=== PATIENT | male | born 1980 | race Hispanic/Latino ===

== ENCOUNTER 2017-10-22 19:38 | Emergency (ER) | payer BC, OTHER ==
--- NOTE | 2017-10-22 20:52 | RAD REPORT ---
EXAM DESCRIPTION: CT - Head Brain Wo Cont - 10/22/2017 8:46 pm CLINICAL HISTORY: Left-sided numbness, left arm weakness COMPARISON: None. TECHNIQUE: Axial 5 mm thick images of the head were obtained without IV contrast. All CT scans are performed using dose optimization technique as appropriate and may include automated exposure control or mA/KV adjustment according to patient size. FINDINGS: No intracranial hemorrhage, mass, edema or shift of mid-line structures. No acute infarcti on changes seen. No abnormal extra-axial fluid collections. Ventricles are normal. Relative density along the tentorium is felt to be normal for age and not the tentorium subdural hematoma. Falx is nor mal. Mastoid air cells and visualized portions of the paranasal sinuses are clear. No acute bony findings. IMPRESSION: Negative non-contrast CT head examination. Concerns for acute CVA could be addressed wi MR imaging.
[2017-10-22 21:14] LABS: Bicarbonate 26 mEq/L (21-31); Glucose Level 106 mg/dL (65-120); Potassium 3.3 mEq/L (3.6-5.0); Sodium Level 139 mEq/L (135-145)
[2017-10-22 21:15] LABS: Absolute Lymphocytes (CBC) 2.3 K/uL (0.7-4.9); Absolute Monocytes 0.7 K/uL (0.1-1.3); Absolute Neutrophil 5.5 K/uL (1.8-8.0); BUN Blood Urea Nitrogen 16 mg/dL (6-20); Basophils % 0.7 % (0-1.3); Hematocrit 42.6 % (39.6-49.0); Lymphocytes % 26.9 % (15.3-44.8); MCH 31.3 pg (27.0-35.0); MCV 89.9 fL (80-100); MPV 8.5 fL (7.6-11.3); Monocytes % 8.6 % (3.3-12.3); RBC Red Blood Cell Count 4.74 M/uL (4.33-5.43)
--- NOTE | 2017-10-22 22:20 | RAD REPORT ---
EXAM DESCRIPTION: RAD - Chest Single View - 10/22/2017 10:14 pm CLINICAL HISTORY: Chest pain COMPARISON: None. TECHNIQUE: AP portable chest image was obtained 4 hours . FINDINGS: Lungs are clear. Heart and vasculature are normal. No measurable pleural effusion and no p neumothorax. No gross bony abnormality seen. No acute aortic findings suspected. IMPRESSION: No acute cardiopulmonary process.
--- NOTE | 2017-10-22 23:02 | ER ---
Nurse's Notes [facility] Name: Arnel Brady Age: 37 yrs Sex: Male : 1980 Arrival Date: 10/22/2017 Time: 19:42 Bed 20 Private MD: Diagnosis: Paresthesia of skin;Chest pain, unspecified Presentation: 10/22 20:01 Presenting complaint: Patient states: that at 1700 today he started to have shortness fc of breath, rapid breathing, numbness to left cheek and left arm. Continues to have slight numbness to left arm and left cheek. No weakness noted to exts. Gait normal. Transition of care: patient was not received from another setting of care. Onset of symptoms was October 22, 2017 at 17:00. Initial Sepsis Screen: Does the patient meet any 2 criteria? No. Patient's initial sepsis screen is negative. Does the patient have a suspected source of infection? No. Patient's initial sepsis screen is negative. Care prior to arrival: Medication(s) given: ASA, 325 mg, x 1. 20:01 Method Of Arrival: Ambulatory fc 20:01 Acuity: SIDDHARTH 3 fc Triage Assessment: 20:05 General: Appears comfortable, Behavior is calm, cooperative, appropriate for age. Pain: fc Denies pain. EENT: No deficits noted. Neuro: Level of Consciousness is awake, alert, obeys commands, Oriented to person, place, time, situation, Reports numbness in left cheek and left arm Denies blurred vision dizziness, headache. Cardiovascular: No deficits noted. Respiratory: Reports shortness of breath prior to arrival Onset: The symptoms/episode began/occurred suddenly, the patient has mild shortness of breath. GI: No deficits noted. : No deficits noted. Derm: Skin is pink, warm \T\ dry. Musculoskeletal: Circulation, motion, and sensation intact. Capillary refill < 3 seconds, Range of motion: intact in all extremities, Reports numbness in left arm and left cheek. Historical: - Allergies: 20:05 No Known Allergies; fc - Home Meds: 20:05 None [Active]; fc - PMHx: 20:05 None; fc - PSHx: 20:05 None; fc - Immunization history:: Last tetanus immunization: unknown. - Social history:: Smoking status: Patient/guardian denies using tobacco. Screenin:05 Abuse screen: Denies threats or abuse. Nutritional screening: No deficits noted. jd3 Tuberculosis screening: No symptoms or risk factors identified. Fall Risk IV access (20 points). Gait- Normal/Bed Rest/Wheelchair (0 pts) Mental Status- Oriented to own ability (0 pts). Total Lo Fall Scale indicates No Risk (0-24 pts). Assessment: 20:13 General: Appears in no apparent distress. uncomfortable, Behavior is calm, cooperative, jd3 appropriate for age. Pain: Complains of pain in chest Pain radiates to face and left arm Quality of pain is described as aching, pressure, Pain began 4 hours ago. Neuro: Level of Consciousness is awake, alert, obeys commands, Oriented to person, place, time, situation, Appropriate for age Gait is steady, Speech is normal, Facial symmetry appears normal, Intact. Cardiovascular: Heart tones S1 S2 present Capillary refill < 3 seconds Patient's skin is warm and dry. Rhythm is regular. Respiratory: Airway is patent Respiratory effort is even, unlabored, Respiratory pattern is regular, symmetrical, Breath sounds are clear bilaterally. GI: Abdomen is round Patient currently denies diarrhea, nausea, vomiting. : No signs and/or symptoms were reported regarding the genitourinary system. EENT: No signs and/or symptoms were reported regarding the EENT system. Derm: Skin is intact, Skin is dry, Skin is normal, Skin temperature is warm. Musculoskeletal: Circulation, motion, and sensation intact. Range of motion: intact in all extremities. 21:11 Reassessment: Patient appears in no apparent distress at this time. Patient and/or jd3 family updated on plan of care and expected duration. Pain level reassessed. Patient is alert, oriented x 3, equal unlabored respirations, skin warm/dry/pink. 22:12 Reassessment: Patient appears in no apparent distress at this time. Patient and/or jd3 family updated on plan of care and expected duration. Pain level reassessed. Patient is alert, oriented x 3, equal unlabored respirations, skin warm/dry/pink. 23:17 Reassessment: Patient appears in no apparent distress at this time. Patient is alert, aa1 oriented x 3, equal unlabored respirations, skin warm/dry/pink. Discussed d/c \T\ f/u instructions with pt; denies questions or concerns at this time Patient states feeling better. Vital Signs: 20:07 BP 107 / 72; Pulse 84; Resp 16; Temp 98.2(TE); Pulse Ox 97% on R/A; Weight 68.04 kg fc (R); Height 4 ft. 11 in. (149.86 cm) (R); Pain 0/10; 21:10 BP 114 / 83; Pulse 69; Resp 16 S; Pulse Ox 96% on R/A; Pain 0/10; jd3 22:12 BP 126 / 89; Pulse 71; Resp 14 S; Pulse Ox 97% on R/A; jd3 23:17 BP 113 / 74 LA; Pulse 74; Resp 18; Pulse Ox 98% on R/A; Pain 0/10; aa1 23:17 BP 105 / 68 RA; aa1 20:07 Body Mass Index 30.30 (68.04 kg, 149.86 cm) fc NIH Stroke Scale Scores: 22:57 NIHSS Score: 0 gs ED Course: 19:42 Patient arrived in ED. ds1 20:04 Triage completed. fc 20:05 Arm band placed on Patient placed in an exam room, on a stretcher. fc 20:09 Raman Rm MD is Attending Physician. gs 20:09 Mahnaz Solano, RN is Primary Nurse. aj 20:20 Primary Nurse role handed off by Mahnaz Solano, RN jd3 20:20 Bassam Chaidez, [place] is Primary Nurse. jd3 20:37 X-ray completed. Portable x-ray completed in exam room. Patient tolerated procedure kc2 well. 20:38 XRAY Chest (1 view) In Process Unspecified. EDMS 20:47 CT Head Brain wo Cont In Process Unspecified. EDMS 20:53 Inserted saline lock: 20 gauge in right hand, using aseptic technique. Blood collected. jd3 placed by Nasim STOREY. 21:06 Patient has correct armband on for positive identification. Placed in gown. Bed in low jd3 position. Call light in reach. Side rails up X 1. 23:08 Haja Irizarry MD is Referral Physician. gs 23:08 Araseli Puente DO is Referral Physician. gs 23:18 No provider procedures requiring assistance completed. IV discontinued, intact, aa1 bleeding controlled, No redness/swelling at site. Pressure dressing applied. Administered Medications: No medications were administered Outcome: 23:01 Discharge ordered by . 23:18 Discharged to home ambulatory. aa1 23:18 Condition: good 23:18 Discharge instructions given to patient, Instructed on discharge instructions, follow up and referral plans. Demonstrated understanding of instructions, follow-up care. 23:18 Patient left the ED. aa1 NIH Stroke Scale - NIH Stroke Score Date: 10/22/2017 Time: 22:57 Total Score = 0 1a. Level of Consciousness (LOC) - 0(Alert) 1b. Level of Consciousness (LOC) (Year \T\ Age) - 0(Both) 1c. LOC Commands (Open \T\ Closes Eyes/Foam Rubber Molder) - 0(Both) 2. Best Gaze (Lateral Gaze Paresis) - 0(Normal) 3. Visual Field Loss - 0(No visual loss) 4. Facial Palsy - 0(Normal) 5a. Left Arm: Motor (10-second hold) - 0(No drift) 5b. Right Arm: Motor (10-second hold) - 0(No drift) 6a. Left Leg: Motor (5-second hold - always test supine) - 0(No drift) 6b. Right Leg: Motor (5-second hold - always test supine) - 0(No drift) 7. Limb Ataxia (finger/nose \T\ heel/rausch - test with eyes open) - 0(Absent) 8. Sensory Loss (pinprick arms/legs/face) - 0(Normal) 9. Best Language: Aphasia (description/naming/reading) - 0(No aphasia) 10. Dysarthria (speech clarity - read or repeat words) - 0(Normal) 11. Extinction and Inattention (visual/tactile/auditory/spatial/personal) - 0(No abnormality) Initials: Signatures: Dispatcher [employer] EDMS Chely Hess RN RN aa1 Mahnaz Solano RN RN aj Chretien, Felicia, RN RN fc Sanford, Demi ds1 Eloina Oneill Gregory, MD MD gs Davies, Jonathon, RN RN jd3 Corrections: (The following items were deleted from the chart) 20:07 20:05 Musculoskeletal: No signs and/or symptoms reported regarding the musculoskeletal system.
--- NOTE | 2017-10-22 23:03 | EDPHYS ---
Physician Documentation [facility] Name: Arnel Brady Age: 37 yrs Sex: Male : 1980 Arrival Date: 10/22/2017 Time: 19:42 Bed 20 Private MD: ED Physician Raman Rm HPI: 10/22 22:57 This 37 yrs old Male presents to ER via Ambulatory with complaints of L-Side gs Numbness. 22:57 The patient presents to the emergency department with paresthesias of the left upper gs extremity, left side of the face. Onset: The symptoms/episode began/occurred today, at 16:00. Context: occurred at work. Associated signs and symptoms: Pertinent negatives: altered mental status, weakness. Severity of symptoms: At their worst the symptoms were moderate in the emergency department the symptoms have improved markedly. The patient has not experienced similar symptoms in the past. The patient has not recently seen a physician. Historical: - Allergies: 20:05 No Known Allergies; fc - Home Meds: 20:05 None [Active]; fc - PMHx: 20:05 None; fc - PSHx: 20:05 None; fc - Immunization history:: Last tetanus immunization: unknown. - Social history:: Smoking status: Patient/guardian denies using tobacco. ROS: 22:57 Cardiovascular: Positive for chest pain, of the left supraclavicular area, left gs clavicle and anterior aspect of left upper chest, brief resolved. 22:57 All other systems are negative. Exam: 22:57 Head/Face: Normocephalic, atraumatic. Eyes: Pupils equal round and reactive to light, gs extra-ocular motions intact. Lids and lashes normal. Conjunctiva and sclera are non-icteric and not injected. Cornea within normal limits. Periorbital areas with no swelling, redness, or edema. ENT: Nares patent. No nasal discharge, no septal abnormalities noted. Tympanic membranes are normal and external auditory canals are clear. Oropharynx with no redness, swelling, or masses, exudates, or evidence of obstruction, uvula midline. Mucous membranes moist. Neck: Trachea midline, no thyromegaly or masses palpated, and no cervical lymphadenopathy. Supple, full range of motion without nuchal rigidity, or vertebral point tenderness. No Meningismus. Chest/axilla: Normal chest wall appearance and motion. Nontender with no deformity. No lesions are appreciated. Cardiovascular: Regular rate and rhythm with a normal S1 and S2. No gallops, murmurs, or rubs. Normal PMI, no JVD. No pulse deficits. Respiratory: Lungs have equal breath sounds bilaterally, clear to auscultation and percussion. No rales, rhonchi or wheezes noted. No increased work of breathing, no retractions or nasal flaring. Abdomen/GI: Soft, non-tender, with normal bowel sounds. No distension or tympany. No guarding or rebound. No evidence of tenderness throughout. Back: No spinal tenderness. No costovertebral tenderness. Full range of motion. Skin: Warm, dry with normal turgor. Normal color with no rashes, no lesions, and no evidence of cellulitis. MS/ Extremity: Pulses equal, no cyanosis. Neurovascular intact. Full, normal range of motion. 22:57 Constitutional: The patient appears alert, awake. 22:57 Neuro: Orientation: is normal, Mentation: is normal, Memory: is normal, Cranial nerves: grossly normal, CN II- XII are normal as tested, Cerebellar function: normal finger to nose testing, Motor: is normal, strength is normal, strength is 5/5 in all extremities, Sensation: pin prick testing is normal. 22:57 ECG was reviewed by the Attending Physician. Vital Signs: 20:07 BP 107 / 72; Pulse 84; Resp 16; Temp 98.2(TE); Pulse Ox 97% on R/A; Weight 68.04 kg (R); Height 4 ft. 11 in. (149.86 cm) (R); Pain 0/10; 21:10 BP 114 / 83; Pulse 69; Resp 16 S; Pulse Ox 96% on R/A; Pain 0/10; jd3 22:12 BP 126 / 89; Pulse 71; Resp 14 S; Pulse Ox 97% on R/A; jd3 23:17 BP 113 / 74 LA; Pulse 74; Resp 18; Pulse Ox 98% on R/A; Pain 0/10; aa1 23:17 BP 105 / 68 RA; aa1 20:07 Body Mass Index 30.30 (68.04 kg, 149.86 cm) NIH Stroke Scale Scores: 22:57 NIHSS Score: 0 gs MDM: 20:16 Patient medically screened. gs 22:57 Data reviewed: vital signs, nurses notes. Response to treatment: the patient's symptoms gs have markedly improved after treatment. ED course: ddx cva, tia, paresthesia, cad. 10/22 20:18 Order name: Basic Metabolic Panel; Complete Time: :27 10/22 20:18 Order name: CBC with Diff; Complete Time: : 10/22 20:18 Order name: Magnesium; Complete Time: : 10/22 20:18 Order name: Troponin (emerg Dept Use Only); Complete Time: : 10/22 20:18 Order name: XRAY Chest (1 view); Complete Time: :40 10/22 20:18 Order name: CT Head Brain wo Cont; Complete Time: : 10/22 20:18 Order name: EKG; Complete Time: 20:18 10/22 20:18 Order name: Cardiac monitoring; Complete Time: 20: 10/22 20:18 Order name: EKG - Nurse/Tech; Complete Time: :58 10/22 20:18 Order name: IV Saline Lock; Complete Time: 20:58 10/22 20:18 Order name: Labs collected and sent; Complete Time: 20:58 10/22 20:18 Order name: O2 Per Protocol; Complete Time: 20: 10/22 20:18 Order name: O2 Sat Monitoring; Complete Time: 20:21 10/22 20:18 Order name: Urine Dipstick-Ancillary (obtain specimen); Complete Time: 20:21 gs EC:57 Rate is 77 beats/min. Rhythm is regular. NV interval is normal. QRS interval is normal. gs QT interval is normal. T waves are Flattened in leads III, aVF. Clinical impression: Abnormal EKG without significant change. Interpreted by me. Administered Medications: No medications were administered Disposition: 10/22/17 23:01 Discharged to Home. Impression: Paresthesia of skin, Chest pain, unspecified. - Condition is Stable. - Discharge Instructions: Nonspecific Chest Pain, Paresthesia, [id number]. - Medication Reconciliation Form, Thank You Letter, Antibiotic Education, Prescription Opioid Use form. - Follow up: Private Physician; When: 2 - 3 days; Reason: Re-evaluation by your physician. Follow up: Haja Irizarry MD; When: 2 - 3 days; Reason: Re-evaluation by your physician. Follow up: Araseli Peunte DO; When: 2 - 3 days; Reason: Re-evaluation by your physician. NIH Stroke Scale - NIH Stroke Score Date: 10/22/2017 Time: 22:57 Total Score = 0 1a. Level of Consciousness (LOC) - 0(Alert) 1b. Level of Consciousness (LOC) (Year \T\ Age) - 0(Both) 1c. LOC Commands (Open \T\ Closes Eyes/Inspector Subassembly) - 0(Both) 2. Best Gaze (Lateral Gaze Paresis) - 0(Normal) 3. Visual Field Loss - 0(No visual loss) 4. Facial Palsy - 0(Normal) 5a. Left Arm: Motor (10-second hold) - 0(No drift) 5b. Right Arm: Motor (10-second hold) - 0(No drift) 6a. Left Leg: Motor (5-second hold - always test supine) - 0(No drift) 6b. Right Leg: Motor (5-second hold - always test supine) - 0(No drift) 7. Limb Ataxia (finger/nose \T\ heel/rausch - test with eyes open) - 0(Absent) 8. Sensory Loss (pinprick arms/legs/face) - 0(Normal) 9. Best Language: Aphasia (description/naming/reading) - 0(No aphasia) 10. Dysarthria (speech clarity - read or repeat words) - 0(Normal) 11. Extinction and Inattention (visual/tactile/auditory/spatial/personal) - 0(No abnormality) Initials: gs Signatures: Dispatcher [employer] EDMS Chely Hess RN RN aa1 Monika Eastman RN RN fc Raman Rm MD MD gs Corrections: (The following items were deleted from the chart) 23:08 23:01 10/22/2017 23:01 Discharged to Home. Impression: Paresthesia of skin; gs Chest pain, unspecified. Condition is Stable. Forms are Medication Reconciliation Form, Thank You Letter, Antibiotic Education, Prescription Opioid Use. Follow up: Private Physician; When: 2 - 3 days; Reason: Re-evaluation by your physician. gs 23:18 23:08 10/22/2017 23:01 Discharged to Home. Impression: Paresthesia of skin; aa1 Chest pain, unspecified. Condition is Stable. Discharge Instructions: Nonspecific Chest Pain, Paresthesia, [id number]. Forms are Medication Reconciliation Form, Thank You Letter, Antibiotic Education, Prescription Opioid Use. Follow up: Private Physician; When: 2 - 3 days; Reason: Re-evaluation by your physician. Follow up: Haja Irizarry; When: 2 - 3 days; Reason: Re-evaluation by your physician. Follow up: Araseli Puente; When: 2 - 3 days; Reason: Re-evaluation by your physician. gs
--- NOTE | 2017-10-23 12:18 | EKG ---
Test Date: 2017-10-22 Test Time: 20:50:55 [place] Machine Operator: PAULINE MEASUREMENT RESULTS: Intervals: Rate: 77 FL: 152 QRSD: 94 QT: 370 QTc: 418 [place]: P: 47 FL: 152 QRS: 32 T: 8 INTERPRETIVE STATEMENTS: Normal sinus rhythm with sinus arrhythmia Normal ECG No previous ECG available for comparison Electronically Signed On 10-23-17 12:17:46 CDT by Christiano De Dios
== END 2017-10-22 23:18 | disposition home or self-care (01) ==
LOC: ER 19:38
DX: R07.9 Chest pain, unspecified (principal)
CPT/HCPCS: 36415; 70450; 71045; 80048; 83735; 84484; 85025; 93005; 99284

== ENCOUNTER 2023-02-18 10:08 | Emergency (ER) | payer BC, SELFPAY ==
[2023-02-18] MEDS ORDERED: LIDOCAINE 2% MPF 5 ML VIAL ONE (10:47)
[2023-02-18] MEDS ORDERED: IBUPROFEN 400 MG TAB ONE (10:47)
[2023-02-18] MEDS ORDERED: BUPIVACAINE 0.5% PF 10 ML VIAL ONE (10:47)
[2023-02-18] MEDS ORDERED: TDAP (DIPHTH,PERTUSS(ACELL),TET VAC) 0.5 ML VIAL IMVAC ONE (10:48)
--- NOTE | 2023-02-18 11:13 | RAD REPORT ---
EXAM DESCRIPTION: RAD.Finger-Thumb Left02/18/2023 10:41 am CLINICAL HISTORY: laceration COMPARISON: No comparisons TECHNIQUE: Two views of the left second digit FINDINGS: Soft tissue swelling and irregularity along the second digit distal phalanx. Small chip fr acture related to the antro lateral cortex of the second digit distal phalanx. Joint alignment is dave ntained. No other suspicious osseous lesions. IMPRESSION: Small chip fracture along the antro lateral cortex of the second digit distal phalanx. A djacent soft tissue swelling and irregularity, suggesting a laceration.
[2023-02-18] MEDS ORDERED: CEFAZOLIN SODIUM 1 GM/VIAL ONE (12:00)
[2023-02-18] MEDS ORDERED: WATER FOR INJ,STERILE 10 ML ONE (12:01)
--- NOTE | 2023-02-18 12:44 | EDPHYS ---
Physician Documentation [facility] Name: Arnel Brady Age: 42 yrs Sex: Male : 1980 Arrival Date: 02/18/2023 Time: 10:08 Bed 13 Private MD: ED Physician Charito Rankin HPI: 02/18 10:30 This 42 yrs old Male presents to ER via Ambulatory with complaints of Finger cp laceration. 10:30 The patient or guardian reports injury, a laceration. The complaints affect the distal cp phalanx left index finger. Context: resulted from use of machine zipper trimmer. Onset: The symptoms/episode began/occurred just prior to arrival. Associated signs and symptoms: The patient has no apparent associated signs or symptoms. Historical: - Allergies: 10:20 No Known Allergies; hb - Home Meds: 10:20 None [Active]; hb - PMHx: 10:20 None; hb - PSHx: 10:20 None; hb - Immunization history:: Adult Immunizations up to date. - Social history:: Smoking status: Patient denies any tobacco usage or history of. ROS: 10:35 Eyes: Negative for injury, pain, redness, and discharge. cp 10:35 Constitutional: Negative for body aches, chills, fever. 10:35 Cardiovascular: Negative for chest pain, palpitations. 10:35 Respiratory: Negative for cough, shortness of breath, wheezing. 10:35 Abdomen/GI: Negative for abdominal pain, vomiting, diarrhea, constipation. 10:35 MS/extremity: Positive for laceration, of the distal phalanx left index finger, Negative for decreased range of motion. 10:35 Neuro: Negative for altered mental status, headache, weakness. 10:35 All other systems are negative. Exam: 10:40 Head/Face: Normocephalic, atraumatic. cp 10:40 Constitutional: The patient appears in no acute distress, alert, awake, non-toxic, well developed, well nourished, in obvious pain, uncomfortable. 10:40 Eyes: Periorbital structures: appear normal, Conjunctiva: normal, no exudate, no injection, Sclera: no appreciated abnormality, Lids and lashes: appear normal, bilaterally. 10:40 ENT: External ear(s): are unremarkable, Nose: is normal, Mouth: Lips: moist, Oral cp mucosa: moist, Posterior pharynx: is normal, airway is patent, no erythema, no exudate. 10:40 Chest/axilla: Inspection: normal. 10:40 Cardiovascular: Rate: normal. 10:40 Respiratory: the patient does not display signs of respiratory distress, Respirations: normal, Breath sounds: are clear throughout. 10:40 Abdomen/GI: Exam negative for discomfort, distension, guarding, Inspection: abdomen appears normal. 10:40 Musculoskeletal/extremity: Extremities: grossly normal except: noted in the left index finger: laceration, pain, swelling, tenderness, There is no evidence of decreased ROM, deformity, ROM: full active range of motion, in the left index finger, Perfusion: the extremity is normally perfused throughout, the distal phalanx left index finger 2 point discrimination intact Nails: of left index finger intact. 10:40 Neuro: Orientation: to person, place \T\ time. Mentation: is normal, Motor: moves all fours, strength is normal. Vital Signs: 10:19 BP 127 / 85; Pulse 83; Resp 16; Temp 98.3; Pulse Ox 99% on R/A; Weight 63.5 kg; Height hb 4 ft. 11 in. ; Pain 10/10; 13:01 BP 127 / 86; Pulse 78; Resp 16; Pulse Ox 96% on R/A; hb 10:19 Body Mass Index 28.28 (63.50 kg, 149.86 cm) hb 10:19 Pain Scale: Adult hb Laceration: 12:45 Wound Repair of 2.5cm ( 1.0in ) subcutaneous laceration to distal phalanx left index cp finger. Linear shaped.. Distal neuro/vascular/tendon intact. Anesthesia: Digital block administered with 6 mls of Lido/Marcaine. Wound prep: Moderate cleansing by me. Skin closed with 7 5-0 Prolene using simple sutures and sterile technique. Dressed with Bacitracin, non-adherent dressing, finger splint. Patient tolerated well. MDM: 10:11 Patient medically screened. cp 11:00 Differential diagnosis: open fracture, closed fracture, simple laceration, nail injury, cp amputation. 12:42 Data reviewed: vital signs, nurses notes, radiologic studies, plain films. cp 12:42 I considered the following discharge prescriptions or medication management in the emergency department Medications were administered in the Emergency Department. See MAR. Independent interpretation of the following test(s) in the Emergency Department X-Ray: My interpretation is left index finger images show chip fracture of distal phalanx. Response to treatment: the patient's symptoms have markedly improved after treatment, and as a result, I will discharge patient. Special discussion: I discussed in detail with the patient the higher chance of wound infection based on his presenting history. 02/18 10:26 Order name: XRAY Finger-Thumb Left; Complete Time: 11:42 cp 02/18 11:42 Interpretation: Report reviewed. cp 02/18 12:41 Order name: Wound Care; Complete Time: 12:50 cp 02/18 12:41 Order name: Finger Splint; Complete Time: 12:50 cp Administered Medications: 10:44 Drug: Tetanus-Diphtheria Toxoid IM Adult 0.5 ml {[employer] A[employer]: [employer] ([employer]). ll1 Exp: 07/09/2023. Lot #: [id number]. } Route: IM; Site: right deltoid; 12:00 Follow up: Response: No adverse reaction ll1 10:45 Drug: Ibuprofen PO 800 mg Route: PO; ll1 12:00 Follow up: Response: No adverse reaction; Pain is decreased ll1 11:02 Drug: Bupivacaine Infiltration (0.5 %) 5 ml {Note: by Kera RIDDLE.} Volume: 10 ml; ll1 Route: Infiltration; 12:00 Follow up: Response: No adverse reaction ll1 11:03 Drug: Lidocaine Infiltration (2 %) 5 ml {Note: by Kera RIDDLE.} Volume: 5 ml; Route: ll1 Infiltration; 12:00 Follow up: Response: No adverse reaction ll1 12:00 Drug: CeFAZolin IM 1 grams Route: IM; Site: right vastus lateralis; ll1 13:00 Follow up: Response: No adverse reaction hb Disposition Summary: 02/18/23 12:43 Discharge Ordered Location: Home cp Problem: new cp Symptoms: have improved cp Condition: Stable cp Diagnosis - Displaced fracture of distal phalanx of left index finger, initial encounter for cp open fracture Followup: cp - With: Fernando Hill MD - When: 2 - 3 days - Reason: Wound Recheck Followup: cp - With: Horndeski, Fernando, MD - When: 5 - 6 days - Reason: Wound Recheck Discharge Instructions: - Finger Fracture, Adult cp - Laceration Care, Adult cp - Form - Excuse from Work, School, or Physical Activity cp - Discharge Summary Sheet ll1 Forms: - Medication Reconciliation Form cp - Thank You Letter cp - Antibiotic Education cp - Prescription Opioid Use cp - Patient Portal Instructions cp - Leadership Thank You Letter cp - Work release form ll1 Prescriptions: - Cephalexin 500 mg Oral Capsule - take 1 capsule by ORAL route every 6 hours for 10 days; 40 capsule; Refills: 0, cp Product Selection Permitted - Ibuprofen 800 mg Oral Tablet - take 1 tablet by ORAL route every 8 hours As needed take with food; 30 tablet; cp Refills: 0, Product Selection Permitted - Tramadol 50 mg Oral Tablet - take 1 tablet by ORAL route every 8 hours as needed; 12 tablet; Refills: 0, cp Product Selection Permitted Signatures: Dispatcher [employer] EDMS Ishaan Carver PA PA cp Luiza Lawrence RN RN Julito Chahal RN RN ll1 Corrections: (The following items were deleted from the chart) 02/19 10:02/18 10:10 MS/extremity: Positive for laceration, of the distal phalanx left index cp finger, Negative for decreased range of motion, cp 02/19 10:02/18 10:10 Constitutional: Negative for body aches, chills, fever, cp 02/19 10:02/18 10:10 Respiratory: Negative for cough, shortness of breath, wheezing, cp 02/19 10:02/18 10:10 Abdomen/GI: Negative for abdominal pain, vomiting, diarrhea, constipation, cp 02/19 10:02/18 10:10 Cardiovascular: Negative for chest pain, palpitations, cp 02/19 10:02/18 10:10 Eyes: Negative for injury, pain, redness, and discharge, cp 02/19 10:02/18 10:10 Neuro: Negative for altered mental status, headache, weakness, cp 02/19 10:02/18 10:10 All other systems are negative, cp 02/19 10:43 02/18 14:30 Wound Repair of 2.5cm ( 1.0in ) subcutaneous laceration to distal phalanx cp left index finger. Linear shaped.. Distal neuro/vascular/tendon intact. Anesthesia: Digital block administered with 6 mls of Lido/Marcaine. Wound prep: Moderate cleansing by me. Skin closed with 7 5-0 Prolene using simple sutures and sterile technique. Dressed with Bacitracin, non-adherent dressing, finger splint. Patient tolerated well. cp 02/19 10:02/18 10:40 Musculoskeletal/extremity: Extremities: grossly normal except: noted in the cp left index finger: laceration, pain, swelling, tenderness, There is no evidence of decreased ROM, deformity, ROM: full active range of motion, in the left index finger, Perfusion: the extremity is normally perfused throughout, the distal phalanx left index finger 2 point discrimination intact cp 02/19 10:44 02/18 10:40 Neuro: Orientation: to person, place \T\ time. Mentation: is normal, Motor: cp moves all fours, strength is normal, cp
--- NOTE | 2023-02-18 12:44 | ER ---
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 Coronavirus hb screen: At this time, the client does not indicate any symptoms associated with coronavirus-19. Ebola Screen: No symptoms or risks identified at this time. Initial Sepsis Screen: Does the patient meet any 2 criteria? No. Patient's initial sepsis screen is negative. Does the patient have a suspected source of infection? No. Patient's initial sepsis screen is negative. Risk Assessment: Do you want to hurt yourself or someone else? Patient reports no desire to harm self or others. Onset of symptoms was February 18, 2023. 10:19 Method Of Arrival: Ambulatory hb 10:19 Acuity: SIDDHARTH 3 hb Historical: - Allergies: 10:20 No Known Allergies; hb - Home Meds: 10:20 None [Active]; hb - PMHx: 10:20 None; hb - PSHx: 10:20 None; hb - Immunization history:: Adult Immunizations up to date. - Social history:: Smoking status: Patient denies any tobacco usage or history of. Screenin:06 [facility] ED Fall Risk Assessment (Adult) Score/Fall Risk Level 0 - 2 = Low Risk ll1 Oriented to surroundings, Maintained a safe environment, Educated pt \T\ family on fall prevention, incl call for assistance when getting out of bed, Hourly rounding (assess needs \T\ fall precautionary measures) done. Abuse screen: Denies threats or abuse. Nutritional screening: No deficits noted. Tuberculosis screening: No symptoms or risk factors identified. Assessment: 10:40 General: Appears uncomfortable, Behavior is calm, cooperative, appropriate for age. ll1 Pain: Complains of pain in left hand Quality of pain is described as aching, throbbing. Derm: Reports laceration tip of L hand 2nd digit. Musculoskeletal: Circulation, motion, and sensation intact. Capillary refill < 3 seconds. 10:45 Reassessment: No changes from previously documented assessment. Patient and/or family ll1 updated on plan of care and expected duration. Pain level reassessed. Patient is alert, oriented x 3, equal unlabored respirations, skin warm/dry/pink. 12:00 Reassessment: No changes from previously documented assessment. Patient and/or family ll1 updated on plan of care and expected duration. Pain level reassessed. Patient is alert, oriented x 3, equal unlabored respirations, skin warm/dry/pink. 12:10 Reassessment: No changes from previously documented assessment. Patient and/or family ll1 updated on plan of care and expected duration. Pain level reassessed. Patient is alert, oriented x 3, equal unlabored respirations, skin warm/dry/pink. 13:01 Reassessment: No changes from previously documented assessment. Patient and/or family hb updated on plan of care and expected duration. Pain level reassessed. Patient is alert, oriented x 3, equal unlabored respirations, skin warm/dry/pink. Vital Signs: 10:19 BP 127 / 85; Pulse 83; Resp 16; Temp 98.3; Pulse Ox 99% on R/A; Weight 63.5 kg; Height hb 4 ft. 11 in. ; Pain 10/10; 13:01 BP 127 / 86; Pulse 78; Resp 16; Pulse Ox 96% on R/A; hb 10:19 Body Mass Index 28.28 (63.50 kg, 149.86 cm) hb 10:19 Pain Scale: Adult hb ED Course: 10:09 Patient arrived in ED. mr 10:11 Ishaan Carver PA is PHCP. cp 10:11 Charito Rankin MD is Attending Physician. cp 10:17 Julito Chahal, [place] is Primary Nurse. ll1 10:17 Arm band placed on Patient placed in an exam room, on a stretcher. ll1 10:20 Triage completed. hb 10:43 XRAY Finger-Thumb Left In Process Unspecified. EDMS 11:06 Patient has correct armband on for positive identification. Bed in low position. Call ll1 light in reach. 12:41 Fernando Hill MD is Referral Physician. cp 12:41 Referral Physician role handed off by Fernando Hill MD cp 12:41 Fernando Hill MD is Referral Physician. cp 13:02 Provided Education on: n/a. hb 13:02 No provider procedures requiring assistance completed. Patient did not have IV access hb during this emergency room visit. Administered Medications: 10:44 Drug: Tetanus-Diphtheria Toxoid IM Adult 0.5 ml {[employer]: [employer] ([employer] ll1 Exp: 07/09/2023. Lot #: [id number]. } Route: IM; Site: right deltoid; 12:00 Follow up: Response: No adverse reaction ll1 10:45 Drug: Ibuprofen PO 800 mg Route: PO; ll1 12:00 Follow up: Response: No adverse reaction; Pain is decreased ll1 11:02 Drug: Bupivacaine Infiltration (0.5 %) 5 ml {Note: by Kera ASTUDILLO} Volume: 10 ml; ll1 Route: Infiltration; 12:00 Follow up: Response: No adverse reaction ll1 11:03 Drug: Lidocaine Infiltration (2 %) 5 ml {Note: by Kera ASTUDILLO} Volume: 5 ml; Route: ll1 Infiltration; 12:00 Follow up: Response: No adverse reaction ll1 12:00 Drug: CeFAZolin IM 1 grams Route: IM; Site: right vastus lateralis; ll1 13:00 Follow up: Response: No adverse reaction hb Medication: 10:45 Vaccine Information Statement (VIS) provided today. Questions and/or concerns 1 addressed. VIS edition date: January 25, 2021. Outcome: 12:43 Discharge ordered by . cp 13:02 Discharged to home ambulatory. hb 13:02 Condition: stable 13:02 Discharge instructions given to patient, Instructed on discharge instructions, follow up and referral plans. no drinking with medication, no driving heavy equipment, medication usage, wound care, Demonstrated understanding of instructions, follow-up care, medications, wound care, Prescriptions given X 3. 13:04 Patient left the ED. 1 Signatures: Dispatcher [employer] KARENNY Jeimy Guidry Corey, PA PA cp Baxter, Heather, RN RN hb Lewis, Lynsay, RN RN 1
[2023-02-18 13:09] VITALS: TEMP 98.3
[2023-02-18 13:10] VITALS: BP 127/86; O2SAT 96
== END 2023-02-18 13:04 | disposition home or self-care (01) ==
LOC: ER 10:08
DX: S62.631B Displaced fracture of distal phalanx of left index finger, initial encounter for open fracture (principal); Z23 Encounter for immunization
CPT/HCPCS: J0690; J2001